=== PATIENT | female | born 1985 | race Caucasian/White ===

== ENCOUNTER 2016-06-22 18:34 | Emergency (ER) | payer BC ==
[~2016-06-22] VITALS: Ht 160 cm; Wt 60.8 kg
[~2016-06-22 18:34] MED LIST: LORA-741 PO
[2016-06-22 18:43] VITALS: TEMP 36.6; Ht 160 cm; Wt 60.8 kg
[2016-06-22] MEDS ORDERED: SODIUM CHLORIDE 0.9% 1000ML 1,000 ML IV STA (20:06)
[2016-06-22] MEDS ORDERED: LORAZEPAM 1 MG TAB SL STA (20:06)
[2016-06-22 20:36] LABS: BASO % 0.3 %; BASO ABS # 0.03 K/uL (0-0.2); COMPLETE YES; EOS % 1.9 %; HEMATOCRIT 39.1 % (37-47); IG% 0.2 %; LYMPH % 24.5 %; LYMPH ABS # 2.11 K/uL (1.2-3.4); MEAN CELL VOLUME 88.9 fL (80-100); MEAN CORPUSCULAR HEMOGLOBIN 31.4 pg (25-34); MEAN CORPUSCULAR HGB CONC 35.3 g/dl (32-36); MEAN PLATELET VOLUME 10.1 fL (7.4-10.4); MONO % 7.5 %; NEUT % 65.6 %; PLATELET COUNT 292 K/uL (130-400); WHITE BLOOD COUNT 8.61 K/uL (4.8-10.8)
[2016-06-22 20:53] LABS: BUN/CREATININE RATIO 11.4 (10-20); CALCIUM 8.7 mg/dl (8.5-10.1); CREATININE 0.83 mg/dl (0.60-1.20); POTASSIUM 3.5 mmol/L (3.5-5.1)
--- NOTE | 2016-06-22 23:09 | DIAGNOSTIC IMAGING REPORT ---
MRI OF THE BRAIN WITHOUT CONTRAST CLINICAL HISTORY: Left-sided facial numbness, headaches and nausea. COMPARISON STUDY: None. TECHNIQUE: Utilizing a 1.5 Sherry magnet and dedicated coil, multiplanar, multiecho imaging of the brain was performed without IV contrast. FINDINGS: There are no areas of restricted diffusion. Brain volume is normal. No acute intracranial hemorrhage, midline shift or mass effect is present. Ventricular system is normal. Basilar cisterns are patent. There are no extra-axial collections. Flow-voids for the major intracranial vessels are present. No intracranial masses are identified on this unenhanced exam. No areas of parenchymal signal abnormality are identified. There is a moderate amount of fluid within the inferior right mastoid air cells. There is a suspected mucous retention cyst within the right maxillary sinus. Numerous small scalp lesions statistically reflect sebaceous cysts. IMPRESSION: 1. Normal unenhanced MRI of the brain parenchyma. 2. Small to moderate right mastoid effusion. 3. Numerous small scalp lesions which are indeterminate but statistically reflect sebaceous cysts. Electronically signed by: Dennis Nova M.D. 06/22/2016 11:08 PM Dictated Date/Time: 06/22/2016 11:03 PM
[2016-06-23 00:03] VITALS: BP 104/55; PULSE 67; O2SAT 97
--- NOTE | 2016-06-23 01:16 | EMERGENCY ROOM VISIT NOTE ---
History Report prepared by Cookie: Meron Sauer Under the Supervision of: Dr. Yusef Fuentes D.O. First contact with patient: 19:53 Chief Complaint: NEURO SYMPTOMS Stated Complaint: FACIAL TINGLING LEFT SIDED, HEADACHE, NAUSEA Nursing Triage Summary: Patient c/o numb tingling feeling in left face and lip. Patient also getting more frequent headaches. History of Present Illness The patient is a 30 year old female who presents to the Emergency Room with complaints of worsening neurological symptoms for the past 3 days. Three days ago she developed tingling and numbness in her left cheek and states that it felt like when she gets novocaine at the dentist. This was mostly around her left eye. That day she also had dizziness and nausea. Today her symptoms are worse. Her numbness has spread into her upper lip and she is having more pain on the left side of her face above her eye. She reports a headache and mild nausea today. Her headache is located above her left eye and is worse with changing position. She is also feeling more tired than usual. She has never experienced symptoms like this before. The patient denies changes in vision, ringing in ears, chest pain, shortness of breath, vomiting, diarrhea, abnormal vaginal bleeding or discharge, and weakness or numbness anywhere else in her body. She has not had any trouble eating or drinking. She has not had any recent changes in medications. She denies any recent tick bites or exposure to ticks. Her LNMP was last week. She notes that her mother had mini-strokes when she was 30 years old. Source of History: patient Onset: 3 days ago Position: other (neurological) Quality: numbness (/tingling) Timing: worsening Modifying Factors (Worsening): other (changing position) Associated Symptoms: + headache, + nausea, No SOB, No chest pain, No diarrhea, No numbness, No vomiting, No weakness Note: Pt notes dizziness. The patient denies changes in vision, ringing in ears, and abnormal vaginal bleeding or discharge. Review of Systems See HPI for pertinent positives & negatives. A total of 10 systems reviewed and were otherwise negative. Past Medical & Surgical Medical Problems: (1) No Known Active Medical Problems Family History Diabetes mellitus FH: cancer FH: heart disease Hypertension Social History Smoking Status: Never Smoker Marital Status: in relationship Housing Status: lives with significant other Occupation Status: employed Current/Historical Medications Scheduled PRN Lorazepam (Ativan), 0.5 MG PO TID PRN for Anxiety Allergies Coded Allergies: No Known Allergies (Unverified , 06/22/16) Physical Exam Vital Signs Date Time Temp Pulse Resp B/P Pulse Ox O2 Delivery O2 Flow Rate FiO2 06/23/16 00:03 67 20 104/55 97 06/22/16 22:54 73 16 122/63 98 Room Air 06/22/16 20:30 71 16 120/74 100 Room Air 06/22/16 18:43 36.6 126 20 154/87 100 Room Air Physical Exam GENERAL: alert, sitting up in bed, well appearing, well nourished, no distress, non-toxic EYE EXAM: normal conjunctiva, PERRL and EOM's intact EARS: TMs clear bilaterally OROPHARYNX: no exudate, no erythema, lips, buccal mucosa, and tongue normal and mucous membranes are moist NECK: supple, no nuchal rigidity, no adenopathy, non-tender LUNGS: Clear to auscultation. Normal chest wall mechanics HEART: no murmurs, S1 normal and S2 normal ABDOMEN: abdomen soft, non-tender, normo-active bowel sounds, no masses, no rebound or guarding. BACK: Back is symmetrical on inspection and there is no deformity, no midline tenderness, no CVA tenderness. SKIN: no rashes and no bruising UPPER EXTREMITIES: upper extremities are grossly normal. LOWER EXTREMITIES: No pitting edema. NEURO EXAM: Normal sensorium, cranial nerves II-XII intact, normal speech, no weakness of arms, no weakness of legs. No drift. Finger to nose intact. Gross sensation intact. Medical Decision & Procedures ER Provider Diagnostic Interpretation: Radiology results as stated below per my review and the radiologist's interpretation: MRI OF THE BRAIN WITHOUT CONTRAST CLINICAL HISTORY: Left-sided facial numbness, headaches and nausea. COMPARISON STUDY: None. TECHNIQUE: Utilizing a 1.5 Sherry magnet and dedicated coil, multiplanar, multiecho imaging of the brain was performed without IV contrast. FINDINGS: There are no areas of restricted diffusion. Brain volume is normal. No acute intracranial hemorrhage, midline shift or mass effect is present. Ventricular system is normal. Basilar cisterns are patent. There are no extra-axial collections. Flow-voids for the major intracranial vessels are present. No intracranial masses are identified on this unenhanced exam. No areas of parenchymal signal abnormality are identified. There is a moderate amount of fluid within the inferior right mastoid air cells. There is a suspected mucous retention cyst within the right maxillary sinus. Numerous small scalp lesions statistically reflect sebaceous cysts. IMPRESSION: 1. Normal unenhanced MRI of the brain parenchyma. 2. Small to moderate right mastoid effusion. 3. Numerous small scalp lesions which are indeterminate but statistically reflect sebaceous cysts. Electronically signed by: Dennis Nova M.D. 06/22/2016 11:08 PM Dictated Date/Time: 06/22/2016 11:03 PM Laboratory Results 06/22/16 20:25 Red Blood Count 4.40, Mean Corpuscular Volume 88.9, Mean Corpuscular Hemoglobin 31.4, Mean Corpuscular Hemoglobin Concent 35.3, Mean Platelet Volume 10.1, Neutrophils (%) (Auto) 65.6, Lymphocytes (%) (Auto) 24.5, Monocytes (%) (Auto) 7.5, Eosinophils (%) (Auto) 1.9, Basophils (%) (Auto) 0.3, Neutrophils # (Auto) 5.64, Lymphocytes # (Auto) 2.11, Monocytes # (Auto) 0.65, Eosinophils # (Auto) 0.16, Basophils # (Auto) 0.03 06/22/16 20:25 Test 06/22/16 20:25 White Blood Count 8.61 K/uL (4.8-10.8) Red Blood Count 4.40 M/uL (4.2-5.4) Hemoglobin 13.8 g/dL (12.0-16.0) Hematocrit 39.1 % (37-47) Mean Corpuscular Volume 88.9 fL (80-100) Mean Corpuscular Hemoglobin 31.4 pg (25-34) Mean Corpuscular Hemoglobin Concent 35.3 g/dl (32-36) Platelet Count 292 K/uL (130-400) Mean Platelet Volume 10.1 fL (7.4-10.4) Neutrophils (%) (Auto) 65.6 % Lymphocytes (%) (Auto) 24.5 % Monocytes (%) (Auto) 7.5 % Eosinophils (%) (Auto) 1.9 % Basophils (%) (Auto) 0.3 % Neutrophils # (Auto) 5.64 K/uL (1.4-6.5) Lymphocytes # (Auto) 2.11 K/uL (1.2-3.4) Monocytes # (Auto) 0.65 K/uL (0.11-0.59) Eosinophils # (Auto) 0.16 K/uL (0-0.5) Basophils # (Auto) 0.03 K/uL (0-0.2) RDW Standard Deviation 41.5 fL (36.4-46.3) RDW Coefficient of Variation 12.7 % (11.5-14.5) Immature Granulocyte % (Auto) 0.2 % Immature Granulocyte # (Auto) 0.02 K/uL (0.00-0.02) Anion Gap 6.0 mmol/L (3-11) Est Creatinine Clear Calc Drug Dose 82.0 ml/min Estimated GFR () 109.7 Estimated GFR (Non- 94.6 BUN/Creatinine Ratio 11.4 (10-20) Calcium Level 8.7 mg/dl (8.5-10.1) Laboratory results per my review. Medications Administered Medications (Trade) Dose Ordered Sig/Ryan Route Start Time Stop Time Status Last Admin Dose Admin Sodium Chloride (Nss 1000ml) 1,000 ml @ 999 mls/hr Q1H1M STAT IV 06/22/16 20:06 06/22/16 21:06 DC 06/22/16 20:31 999 MLS/HR Lorazepam (Ativan Tab) 1 mg NOW STAT SL 06/22/16 20:06 06/22/16 20:08 DC 06/22/16 21:45 1 MG ECG Indication: other Rate (beats per minute): 76 Rhythm: normal sinus Findings: Q waves (Septal), no ectopy, other (normal axis) ED Course ED COURSE: Vital signs were reviewed and showed normal vitals. The patients medical record was reviewed The above diagnostic studies were performed and reviewed. ED treatments and interventions as stated above. 1952: The patient was evaluated in room B4B. A complete history and physical examination was performed. 2005: Lorazepam 1 mg SL, NSS 1000 ml @ 999 mls/hr IV 2212: The patient was at MRI. I updated her significant other. 0: Upon reevaluation, the patient is feeling better and resting comfortably. I discussed my findings with the patient and she understands and agrees with the treatment plan. Based on the patients age, coexisting illnesses, exam and lab findings the decision to treat as an outpatient was made. The patient remained stable while under my care. The patient appeared well at the time of discharge. Medical Decision Differential diagnosis includes etiologies such as benign positional vertigo, dehydration, hypovolemia, anemia, tumor, infection, hypoglycemia, electrolyte abnormalities, cardiac sources, intracerebral event, toxicologic, neurologic, as well as others were entertained. Patient is a 30-year-old female with no significant a past medical history that presents the ER for numbness around her left eye. This started on Monday and has been progressively worsening. It does not include the lips or the upper for head. She has no focal deficit. She is completely neurologically intact. No tick bites. CBC and BMP were unremarkable. Mother did have strokes at the age of 30. Patient does admit to a mild headache. With these symptoms MRI was performed and was negative. Patient was discharged follow with her primary care doctor. This could be a migraine variant but on MRI there is no signs of stroke or MS. Patient was updated at bedside. Very unlikely to be Lyme with their tick bites or exposures. Favor a peripheral nerve at this time. Discussed with Pt concerning signs and symptoms to watch out for. Pt was instructed to follow up with their PCP and discussed with the patient their option to return to the ED at anytime for persistent or worsening symptoms. The appropriate anticipatory guidance and out-patient management, including indications for return to the emergency department, were explained at length to the patient and understood. Impression Primary Impression: Paresthesias Scribe Attestation The scribe's documentation has been prepared under my direction and personally reviewed by me in its entirety. I confirm that the note above accurately reflects all work, treatment, procedures, and medical decision making performed by me. Departure Information Dispostion Home / Self-Care Referrals Charleen Guevara D.O. (PCP) Forms HOME CARE DOCUMENTATION FORM, IMPORTANT VISIT INFORMATION, WORK / SCHOOL INSTRUCTIONS Patient Instructions ED Paraesthesias, My [facility] Additional Instructions Please follow up with your primary care doctor with in the next 24 hours. Any worsening of your symptoms, please return to the ED immediately. This includes weakness or numbness in her face or arms passing out, chest pain, shortness of breath or any other concerning signs or symptoms from your standpoint.
== END 2016-06-23 00:04 | disposition home or self-care (01) ==
LOC: C.EDB 18:36
DX: R20.2 Paresthesia of skin (principal); Z83.3 Family history of diabetes mellitus; Z80.9 Family history of malignant neoplasm, unspecified; Z82.49 Family history of ischemic heart disease and other diseases of the circulatory system